=== PATIENT | male | born 1970 | race Two or more races ===

== ENCOUNTER 2024-08-09 09:24 | Emergency (ER) | payer SELFPAY ==
[2024-08-09 09:27] VITALS: BMI 32.1
[2024-08-09 09:43] VITALS: BP 138/89; PULSE 92; RESP 20; TEMP 36.5; O2SAT 96; BMI 31.7
--- NOTE | 2024-08-09 09:59 | EKG_ITS ---
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
--- NOTE | 2024-08-09 09:59 | XR_ITS ---
Examination: PA lateral chest 2 views TECHNIQUE: Upright PA lateral chest 2 views Exam date and time: August 19, 2024 10:21 AM INDICATIONS: Coughing beginning 2 weeks ago FINDINGS: Normal heart size. Lungs are clear. Osseous structures are intact IMPRESSION: No active disease
--- NOTE | 2024-08-09 09:59 | XR_ITS ---
Examination: CT brain head without contrast. 2-D sagittal coronal reconstructions Date and time of exam:August 09, 2024 1034 hours INDICATIONS: Dizziness altered mental status beginning 2 weeks ago CTDI: vol (mGy):51.1 DLP: (mGycm):1024 Technique: Multiple CT axial sections of the brain have been obtained, 5 mm slice thickness. Contrast has not been administered. 2-D sagittal, coronal reconstructions have been obtained Low dose protocols were performed. One or more of the following dose reduction techniques were used; automated exposure control, adjustment of the mA and/or KV according to patient size, use of iterative reconstruction technique. Findings: No significant ventricular enlargement. Intra-axial or extra-axial hemorrhage density is not seen. No mass effect or midline shift Basal cisterns are not remarkable. Fourth ventricle is midline. Cranial vault intact. Impression: Negative for acute hemorrhage, mass effect or midline shift If symptoms persist, consider brain MRI follow-up, stroke protocol
--- NOTE | 2024-08-09 09:59 | PD.EDRME ---
Rapid Medical Screening Exam RME Arrival date/time: 08/09/24 09:24 54-year-old male recently diagnosed strep throat presents emergency department today with complaints of feeling dizzy and generalized weakness patient is here with significant other who reports the patient is having syncopal episodes. Symptoms ongoing x 2 weeks Chief Complaint: Flu Like Symptoms Vital signs: Vital Signs Temperature 97.7 F 08/09/24 09:43 Pulse Rate 92 08/09/24 09:43 Respiratory Rate 20 08/09/24 09:43 Blood Pressure 138/89 H 08/09/24 09:43 Pulse Oximetry (%) 96 08/09/24 09:43 Oxygen Delivery Method Room Air 08/09/24 09:43
[2024-08-09 10:26] LABS: Basophils # (Auto) 0.1 Thou/mm3 (0.0-0.2); Basophils % (Auto) 1 % (0-2.5); Eosinophils # (Auto) 0.4 Thou/mm3 (0.0-0.5); Eosinophils % (Auto) 4 % (0-10); Hematocrit 42.8 % (41.0-53.0); Hemoglobin 14.8 g/dL (13.5-16.0); Immature Granulocytes % (Auto) 2 % (0-0); Immature Granulocytes Auto 0.18 Thou/mm3 (0.00-0.00); Lymphocytes # (Auto) 2.1 Thou/mm3 (1.0-4.8); Lymphocytes % (Auto) 22 % (10-50); Mean Corpuscular HGB Conc 34.6 g/dl (31.0-37.0); Mean Corpuscular Hemoglobin 29.5 pg (25.0-35.0); Mean Corpuscular Volume 85 fL (80-100); Monocytes # (Auto) 1.3 Thou/mm3 (0.0-0.8); Monocytes % (Auto) 13 % (0-12); Neutrophils # (Auto) 5.4 Thou/mm3 (1.8-7.7); Neutrophils % (Auto) 57 % (37-80); Nucleated Red Blood Cell % 0 /100 WBC (0); Platelet Count 363 Thou/mm3 (140-440); RDW Standard Deviation 36.8 fL (35.1-43.9); Red Blood Count 5.02 Miln/mm3 (4.50-5.90); White Blood Count 9.4 Thou/mm3 (3.8-10.6)
[2024-08-09 10:38] LABS: Collection Type, Urine Clean Catch
[2024-08-09 10:44] LABS: Partial Thromboplastin Time 29.7 Seconds (22.0-36.0)
[2024-08-09 10:44] LABS: Bilirubin,Urine Negative (Negative); Blood,Urine Negative (Negative); Clarity,Urine Clear (Clear/Hazy); Color,Urine Yellow (Lt Yel-Yel); Glucose, Urine Negative (Negative); Hyaline Casts,Urine 2 /hpf (0-1); Ketones,Urine Negative (Negative); Leukocyte Esterase,Urine Negative (Negative); Nitrite,Urine Negative (Negative); Protein,Urine Trace (Neg - Trace); RBC,Urine 3 /hpf (0-3); Specific Gravity,Urine 1.022 (1.001-1.035); Squamous Epithelial Cell,Urine 1 /hpf (0-5); Urobilinogen,Urine Negative mg/dL (0.0-1.0); WBC,Urine 2 /hpf (0-5)
[2024-08-09 10:45] LABS: Ammonia 12 uMol/L (11-32); B-Type Natriuretic Peptide < 20 pg/mL (0-100)
[2024-08-09 10:48] LABS: Alanine Aminotransferase 33 U/L (10-49); Albumin, Serum 4.5 gm/dL (3.5-5.0); Albumin/Globulin Ratio 1.4 (1.2-2.2); Alkaline Phosphatase 71 U/L (46-116); Anion Gap 7 (7-16); Aspartate Amino Transferase 24 U/L (0-34); BUN/Creatinine Ratio 16 Ratio (12-20); Bilirubin,Total 0.4 mg/dL (0.3-1.2); Blood Urea Nitrogen 14 mg/dL (9-23); Calcium 9.1 mg/dL (8.3-10.6); Calcium (Corrected) 9.1 mg/dL (8.5-10.1); Carbon Dioxide 28.8 mMol/L (20.0-31.0); Chloride 104 mMol/L (98-107); Creatinine (Component) 0.9 mg/dL (0.6-1.3); Estimated Creatinine Clearance 112.6 mL/min (>60); Globulin 3.3 gm/dL (2.3-3.5); Glucose 113 mg/dL (74-106); Magnesium 2.3 mg/dL (1.6-2.6); Osmolality,Calculated 280 (275-295); Potassium 4.4 mMol/L (3.4-5.1); Sodium 140 mMol/L (136-145); Total Protein 7.8 gm/dL (5.7-8.2); Troponin I 0.043 ng/mL (0.0-0.045); eGFR > 60 See Note
[2024-08-09 11:01] LABS: Amphetamine/Methamp Scrn,U Positive (Negative); Barbiturate Screen,Urine Negative (Negative); Benzodiazepines Screen,Urine Negative (Negative); Benzoylecgonine Screen, Ur Negative (Negative); Fentanyl Screen,Urine Negative (Negative); Opiate Screen,Urine Positive (Negative); THC Screen,Urine Negative (Negative)
[2024-08-09 11:12] VITALS: BP 139/90; PULSE 82; RESP 16; TEMP 36.6; O2SAT 96
--- NOTE | 2024-08-09 11:21 | EDNOTE_ITS ---
<Statement entered by Ambreen Alicia MD - 08/10/24 16:29> As co-signing physician, I was present and available for consult prn. I concur with the plan and care as documented by the midlevel provider. Upper Respiratory Inf. RME/HPI General Chief Complaint: Flu Like Symptoms Stated Complaint: dizzy, cough, disoriented, strep + x2wks Time Seen by Provider: 08/09/24 11:14 Arrival date/time: 08/09/24 09:24 RME / HPI RME / HPI Narrative: 54-year-old male recently diagnosed strep throat presents emergency department today with complaints of feeling dizzy and generalized weakness. Patient also complained of continued cough nonproductive for the last 2 weeks. Patient is here with significant other who reports the patient is having syncopal episodes. Symptoms ongoing x 2 weeks. Patient admits of using methamphetamine 3 days ago. Patient denies any fever denies any other complaints no medications taken prior to arrival. Related Data Previous Rx's ?Medication ?Instructions ?Recorded ciprofloxacin HCl 500 mg tablet 500 mg PO Q12H #14 tab s 10/10/18 (Cipro) hydrocodone 5 mg-acetaminophen 325 1 tab PO QID PRN pa in #14 tabs 10/10/18 mg tablet ([place]) ibuprofen 800 mg tablet 800 mg PO TID #30 tabs 10/10 benzonatate 200 mg capsule 200 mg PO TID PRN cough #20 caps 08/09/24 meclizine 50 mg tablet 50 mg PO BID PRN dizziness # 20 tabs 08/09/24 Allergies Allergy/AdvReac Type Severity Reaction Status Date / Time No Known Allergies Allergy Unknown Unverified 10/10/18 16:06 Review of Systems Review of Systems Narrative Review of Systems: Review of system reviewed and within normal limits except mentioned in HPI ED Exam Narrative Physical exam: VITAL SIGNS: Reviewed. GENERAL APPEARANCE: Alert and interactive, follows commands, no acute distress, HEAD AND FACE: Non-traumatic. ENT: PERRL, pink conjunctivitis, eyelid no trauma, Mucous membrane moist. NECK: Supple, nontender, no nuchal rigidity. CHEST: No tenderness, no crepitus, no paradoxical movement, no retractions. LUNGS: Clear, well ventilated, symmetric, no rales, no wheezing, no ronchi, no stridor, good breath sounds bilaterally. HEART: Regular rate, regular rhythm, no murmur, no gallops. ABDOMEN: Soft, positive bowel sounds, nondistended, no guarding, nontender, no rebound, no masses, RECTAL: Deferred. GENITAL: Deferred. NEUROLOGICAL: Gross motor function intact sensory function intact, Appropriate for age. MUSCULOSKELETAL: low back nontender, full range of motion. EXTREMITIES: Nontender, full range of motion. SKIN: Color pink, dry, no rash, no lacerations, no abrasions, no contusions. LYMPHATICS: Deferred. Course Quality Measures none Orders Category Date Time Status Bedside COVID-19 Antigen Test NOW Care 08/09/24 09:59 Active Bedside Influenza A&B Antigen Test NOW Care 08/09/24 09:59 Active EKG (ED ONLY) *Do not use* NOW Care 08/09/24 09:[address] head/brain wo con Stat Exams 08/09/24 09:59 Completed EKG (ED Only) Stat Exams 08/09/24 09:59 Draft XR chest 2V Stat Exams 08/09/24 09:59 Completed Ammonia Stat Lab 08/09/24 10:16 Completed B-Type Natriuretic Peptide Stat Lab 08/09/24 10:16 Completed CBC Stat Lab 08/09/24 10:16 Completed Comprehensive Metabolic Panel Stat Lab 08/09/24 10:16 Completed Drug Screen,Urine Stat Lab 08/09/24 10:32 Completed Magnesium Stat Lab 08/09/24 10:16 Completed Partial Thromboplastin Time Stat Lab 08/09/24 10:16 Completed Prothrombin Time with INR Stat Lab 08/09/24 10:16 Completed Strep A Rapid Stat Lab 08/09/24 10:29 Received Troponin I Stat Lab 08/09/24 10:16 Completed Urinalysis Stat Lab 08/09/24 10:32 Completed Vital Signs Vital signs: Vital Signs Temperature 97.7 F 08/09/24 09:43 Pulse Rate 92 08/09/24 09:43 Respiratory Rate 20 08/09/24 09:43 Blood Pressure 138/89 H 08/09/24 09:43 Pulse Oximetry (%) 96 08/09/24 09:43 Oxygen Delivery Method Room Air 08/09/24 09:43 Upper Respiratory Infection MDM Narrative MDM Narrative:: 54-year-old male recently diagnosed strep throat presents emergency department today with complaints of feeling dizzy and generalized weakness. Patient also complained of continued cough nonproductive for the last 2 weeks. Patient is here with significant other who reports the patient is having syncopal episodes. Symptoms ongoing x 2 weeks. Patient admits of using methamphetamine 3 days ago. Patient denies any fever denies any other complaints no medications taken prior to arrival. \ CT scan of the head came back unremarkable. My imaging finding. Laboratory workup all came back normal. No leukocytosis troponin is normal CMP unremarkable except for positive for meth and opiates EKG sinus rhythm by me showed sinus rhythm, ventricular rate of 83 bpm, NJ interval 151 MS, no ST segment elevation depression noted. Patient was counseled about stopping methamphetamine, initially patient refused and denied that the is not using meth eventfully patient admits of using meth last day 3 days ago. Patient appears nontoxic and hemodynamically stable. Patient discharged home and instructed to follow-up with primary care provider in 24 to 48 hours. Instructed to return to the emergency department immediately if worsening of symptoms Patient data External records reviewed:: None Clinical information provided by:: none Social determinants that could affect healthcare access:: substance use Patient has the following chronic illnesses:: None How is presenting disease/condition affected by chronic disease/condition?: no chronic disease Evaluation data The following diagnostics were reviewed and interpreted by me:: lab results, radiology exam(s) and EKG tracing(s) Lab and/or radiology exams considered but not ordered:: None Interpretation Summary: See results in MDM Medications / Prescriptions Medications or Prescriptions considered but not ordered:: None Medication administrations:: None Consultations Consultation(s) initiated? (list below): No Diagnosis Upper Respiratory Differential Diagnosis: upper respiratory infection, viral infection, bronchitis and other (Dizziness, pneumonia, methamphetamine abuse) Most likely diagnosis given after review of the tests above:: Cough, dizziness, methamphetamine abuse Admission Indicated Admission indicated?: not indicated Admission Request Was there a request for admission?: No Disposition Plan Disposition Plan: Discharge Discharge Attestation Discharge Attestation: The patient and all family members were given an opportunity to ask questions and understood the discharge instructions. Discharge instructions specifically effects, indications for sooner follow up or return to the emergency department, and the expected course of current diagnosis. Patient condition: Stable Discharge Plan Plan Patient Disposition: HOME (Self Care) Disposition Comment: Stable Prescriptions/Referrals Prescriptions/Med Rec: New benzonatate 200 mg capsule 200 mg PO TID PRN (Reason: cough) Qty: 20 0RF meclizine 50 mg tablet 50 mg PO BID PRN (Reason: dizziness) Qty: 20 0RF No Action ibuprofen 800 mg tablet 800 mg PO TID Qty: 30 0RF hydrocodone-acetaminophen [[place]] 5-325 mg tablet 1 tab PO QID MDD 3 tabs PRN (Reason: pain) Qty: 14 0RF ciprofloxacin HCl [Cipro] 500 mg tablet 500 mg PO Q12H Qty: 14 0RF Rx Instructions: administer dose at least 2 hrs before/6 hrs after dairy products, calcium, zinc, and/or iron-containing products Referrals: No Primary/Family,Physician [Primary Care Provider] - In 1 week Problem List Clinical Impression: URI (upper respiratory infection), Dizziness, Methamphetamine abuse Patient/Caregiver Discharge Instructions Discharge Activity: activity as tolerated Education Materials: Understanding Methamphetamine ... Additional Instructions: Thank you for the opportunity for serving you today. You are stable for discharged . You are advised to: Follow-up with your PCP in 1 to 2 days Return to ED for worsening of symptoms Increase oral fluids Take medication as prescribed Please stop abusing methamphetamine, it will destroy your body. Print Language: Armenian Stand Alone Forms: Emily Award Info., Patient Portal Info Letter QING/BETSEY Supervising Physician QING/BETSEY Supervising Physician: Md Ravin
[2024-08-09 11:30] LABS: Strep A Rapid Negative (Negative)
[2024-08-09 11:35] VITALS: PULSE 96; RESP 16; TEMP 36.9; O2SAT 97
== END 2024-08-09 11:36 | disposition home or self-care (01) ==
PROVIDERS: Nurse Practitioner Primary Care; Emergency Provider Emergency Medicine
DX: J06.9 Acute upper respiratory infection, unspecified (principal); F15.10 Other stimulant abuse, uncomplicated; R42 Dizziness and giddiness
CPT/HCPCS: 36415; 70450; 71046; 80053; 80307; 81001; 82140; 83735; 83880; 84484; 85025; 85610; 85730; 87651; 93005; 99284